=== PATIENT | female | born 1995 | race Caucasian/White ===

== ENCOUNTER 2016-04-01 08:29 | Emergency (ER) | payer BC, OTHER ==
[2016-04-01 08:46] VITALS: BP 151/70; PULSE 70; TEMP 98.9; BMI 40.3
--- NOTE | 2016-04-01 09:15 | PDOC ---
History of Present Illness - General Chief Complaint: Respiratory Stated Complaint: COUGH Time Seen by Provider: 04/01/16 08:40 - History of Present Illness Initial Comments: 04/01/16 10:12 Chief complaint: Persistent cough History of present illness: Patient with cough and febrile illness, status post Z-Shaka, fever has resolved and there is no shortness of breath or chest pain. 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 No asthma. Social/family history: No smoking. No lung disease or heart disease. Physical exam: Alert and oriented well-developed well-nourished distress cheerful and cooperative Afebrile, vital signs normal HEENT: Significant nasal congestion is present with discharge Neck supple without bruit mass or nodes Chest clear bilaterally, full breath sounds throughout, no wheezes rales or rhonchi CV regular without murmur rub or gallop Abdomen benign. Impression: Persistent cough and nasal congestion, signs of sinusitis Plan: Rest and fluids, course of Ceftin, more specific for sinusitis, stronger cough suppressant to use at night, nasal steroids. Follow-up ENT if no improvement. Patient discharged with her family to follow-up as directed, fully ambulatory in no distress. Past History - Past Medical History Allergies/Adverse Reactions: Allergies Allergy/AdvReac Type Severity Reaction Status Date / Time No Known Allergies Allergy Verified 11/13/12 22:32 Home Medications: Ambulatory Orders Budesonide [Rhinocort Allergy] 1 - 2 inh NS DAILY #1 spray.pump 04/01/16 Cefuroxime Axetil [Ceftin -] 500 mg PO Q12H #20 tablet 04/01/16 Guaifenesin AC [Robitussin-AC] 1 - 2 tsp PO HS PRN #90 ml MDD 2 04/01/16 Guaifenesin Dm [Robitussin Dm -] 10 ml PO Q4H 04/01/16 Guaifenesin [Mucinex -] 600 mg PO DAILY 04/01/16 Cardiac Disorders: Yes (INFANTI PULM VALVE STENOSIS) - Surgical History Appendectomy: Yes (VALVULOPLASTY AN ) - Immunization History Td Vaccination: Yes Immunization Up to Date: Yes - Psycho/Social/Smoking Cessation Hx Anxiety: No Suicidal Ideation: No Smoking Status: No Smoking History: Never smoked Have you smoked in the past 12 months: No Number of Cigarettes Smoked Daily: 0 Information on smoking cessation initiated: No Hx Alcohol Use: No Drug/Substance Use Hx: No Substance Use Type: None *Physical Exam - Vital Signs Last Vital Signs Temp Pulse Resp BP Pulse Ox 98.9 F 70 16 151/70 98 04/01/16 08:43 04/01/16 08:43 04/01/16 08:43 04/01/16 08:43 04/01/16 08:43 ED Treatment Course - ADDITIONAL ORDERS Additional order review: Laboratory Results 04/01/16 08:50 Urine HCG, Qual Negative *DC/Admit/Observation/Transfer Diagnosis at time of Disposition: Sinusitis Qualifiers: Sinusitis location: unspecified location Chronicity: acute Recurrence: non- recurrent Qualified Code(s): J01.90 - Acute sinusitis, unspecified - Discharge Dispostion Disposition: HOME Condition at time of disposition: Stable Admit: No - Prescriptions Prescriptions: Cefuroxime Axetil [Ceftin -] 500 mg PO Q12H #20 tablet Budesonide [Rhinocort Allergy] 1 - 2 inh NS DAILY #1 spray.pump Guaifenesin AC [Robitussin-AC] 1 - 2 tsp PO HS PRN #90 ml MDD 2 PRN Reason: Cough - Patient Instructions Printed Discharge Instructions: DI for Sinusitis
== END 2016-04-01 09:17 | disposition home or self-care (01) ==
LOC: FER 08:29
DX: J01.90 Acute sinusitis, unspecified (principal); Z95.2 Presence of prosthetic heart valve
CPT/HCPCS: 84703; 99282-25

== ENCOUNTER 2017-07-18 11:59 | Observation (INO) | payer BC, OTHER ==
[2017-07-18] MEDS ORDERED: morphine CARPU-JECT 4 MG/1 ML DISP.SYRIN IVPUSH ONE (12:05)
[2017-07-18] MEDS ORDERED: SODIUM CHLORIDE 1,000 ML IV STA ×2 (12:05→13:18)
[2017-07-18] MEDS ORDERED: ONDANSETRON 4 MG/2 ML VIAL IVPB ONE (12:05)
--- NOTE | 2017-07-18 12:06 | PDOC ---
History of Present Illness <Damian Justice - Last Filed: 07/18/17 15:32> - General History Source: Patient, Parent(s) Exam Limitations: No Limitations - History of Present Illness Initial Comments: 07/18/17 12:20 21 year old F c/ hx pulmonary stenosis s/p surgery at the age of 6 months (with reportedly unremarkable echocardiograms) p/w RLQ pain since this morning. The patient woke up with constant RLQ pain with no appetite, and some nausea. Denies fevers, vomiting, diarrhea, dysuria. No prior abdominal surgeries. Came in for an evaluation. <Wisam Power - Last Filed: 07/18/17 16:31> - General Chief Complaint: Pain Stated Complaint: ABDOMINAL PAIN Time Seen by Provider: 07/18/17 12:05 Past History <Damian Justice - Last Filed: 07/18/17 15:32> - Past Medical History Cardiac Disorders: Yes (INFANTI PULM VALVE STENOSIS) - Surgical History Appendectomy: Yes (VALVULOPLASTY AN INFANT) - Immunization History Td Vaccination: Yes Immunization Up to Date: Yes - Suicide/Smoking/Psychosocial Hx Smoking Status: No Smoking History: Never smoked Have you smoked in the past 12 months: No Number of Cigarettes Smoked Daily: 0 Hx Alcohol Use: No Drug/Substance Use Hx: No Substance Use Type: None <Wisam Power - Last Filed: 07/18/17 16:31> - Past Medical History Allergies/Adverse Reactions: Allergies Allergy/AdvReac Type Severity Reaction Status Date / Time No Known Allergies Allergy Verified 07/18/17 12:01 Review of Systems - Review of Systems Able to Perform ROS?: Yes Comments:: 07/18/17 12:24 GENERAL/CONSTITUTIONAL: No fever, weakness. HEAD, EYES, EARS, NOSE AND THROAT: No change in vision. No ear pain or discharge. No sore throat. CARDIOVASCULAR: No chest pain or shortness of breath. RESPIRATORY: No cough, wheezing, or hemoptysis. GASTROINTESTINAL: + abdominal pain, nausea, decreased PO intolerance. No vomiting, diarrhea. GENITOURINARY: No dysuria, frequency, or change in urination. MUSCULOSKELETAL: No joint or muscle swelling or pain. No neck or back pain. SKIN: No rash NEUROLOGIC: No headache, vertigo, loss of consciousness, or change in strength/ sensation. ENDOCRINE: No increased thirst. No abnormal weight change. HEMATOLOGIC/LYMPHATIC: No anemia, easy bleeding, or history of blood clots. ALLERGIC/IMMUNOLOGIC: No hives or skin allergy. <Wisam Power - Last Filed: 07/18/17 16:31> *Physical Exam - Vital Signs Last Vital Signs Temp Pulse Resp BP Pulse Ox 98.9 F 61 16 110/59 100 07/18/17 13:17 07/18/17 13:17 07/18/17 13:17 07/18/17 13:17 07/18/17 13:17 <Damian Justice - Last Filed: 07/18/17 15:32> - Physical Exam Comments: 07/18/17 12:24 GENERAL: Awake, alert, and fully oriented, in no acute distress. HEAD: No signs of trauma EYES: PERRLA, EOMI, sclera anicteric, conjunctiva clear ENT: Auricles normal inspection, hearing grossly normal, nares patent NECK: Normal ROM, supple LUNGS: Breath sounds equal, clear to auscultation bilaterally. No wheezes, and no crackles HEART: Regular rate and rhythm, normal S1 and S2, +murmur ABDOMEN: Soft. TTP [place] point RLQ, suprapubic. +psoas sign and obturator sign positive. EXTREMITIES: Normal range of motion, no edema. No clubbing or cyanosis. No cords, erythema, or tenderness NEUROLOGICAL: Cranial nerves II through XII grossly intact. Normal speech, normal gait SKIN: Warm, Dry, normal turgor, no rashes or lesions noted. <Wisam Power - Last Filed: 07/18/17 16:31> ED Treatment Course - LABORATORY CBC & Chemistry Diagram: 07/18/17 12:25 07/18/17 12:25 - ADDITIONAL ORDERS Additional order review: Laboratory Results 07/18/17 12:25 Sodium 132 L Potassium 4.6 Chloride 102 Carbon Dioxide 21 L Anion Gap 9 BUN 9 Creatinine 0.9 Creat Clearance w eGFR > 60 Random Glucose 119 H Calcium 9.0 Total Bilirubin 0.7 AST 20 ALT 17 Alkaline Phosphatase 59 Total Protein 7.3 Albumin 4.1 Lipase 106 07/18/17 12:25 RBC 5.28 H MCV 83.1 MCHC 33.5 RDW 13.7 MPV 9.4 Neutrophils % No Result Required. Lymphocytes % No Result Required. - Medications Given in the ED: ED Medications Discontinued Medications Generic Name Dose Route Start Last Admin Trade Name Maria L PRN Reason Stop Dose Admin Sodium Chloride 1,000 mls @ 1,000 mls/hr 07/18/17 12:05 07/18/17 12:35 Normal Saline - IV 07/18/17 13:04 1,000 mls/hr ASDIR STA Administration Sodium Chloride 1,000 mls @ 1,000 mls/hr 07/18/17 13:18 07/18/17 13:23 Normal Saline - IV 07/18/17 14:17 1,000 mls/hr ASDIR STA Administration Morphine Sulfate 4 mg 07/18/17 12:05 07/18/17 12:40 Morphine Injection - IVPUSH 07/18/17 12:06 4 mg ONCE ONE Administration Ondansetron HCl 4 mg 07/18/17 12:05 07/18/17 12:37 Zofran Injection IVPB 07/18/17 12:06 4 mg ONCE ONE Administration <Damian Justice - Last Filed: 07/18/17 15:32> - LABORATORY CBC & Chemistry Diagram: 07/18/17 12:25 07/18/17 12:25 <Wisam Power - Last Filed: 07/18/17 16:31> Medical Decision Making - Medical Decision Making 07/18/17 15:[address] Ramos at 2:56pm. Case discussed with Dr. Almaguer at 3:27pm <Damian Justice - Last Filed: 07/18/17 15:32> - Medical Decision Making 07/18/17 12:25 Vital Signs Temp Pulse Resp BP Pulse Ox 97.9 F 52 L 20 129/66 100 07/18/17 12:00 07/18/17 12:00 07/18/17 12:00 07/18/17 12:00 07/18/17 12:00 Pt with RLQ pain. Will need to r/o appendicitis. Labs, UA, Urine test, CT abdomen and pelvis. 07/18/17 16:29 CBC, BMP 07/18/17 12:25 07/18/17 12:25 CMP Sodium 132 mmol/L (136-145) L 07/18/17 12:25 Potassium 4.6 mmol/L (3.5-5.1) 07/18/17 12:25 Chloride 102 mmol/L (98-107) 07/18/17 12:25 Carbon Dioxide 21 mmol/L (22-28) L 07/18/17 12:25 Anion Gap 9 (8-16) 07/18/17 12:25 BUN 9 mg/dl (7-18) 07/18/17 12:25 Creatinine 0.9 mg/dl (0.6-1.3) 07/18/17 12:25 Creat Clearance w eGFR > 60 (>60) 07/18/17 12:25 Random Glucose 119 mg/dl (74-106) H 07/18/17 12:25 Calcium 9.0 mg/dl (8.4-10.2) 07/18/17 12:25 Total Bilirubin 0.7 mg/dl (0.2-1.0) 07/18/17 12:25 AST 20 U/L (10-42) 07/18/17 12:25 ALT 17 U/L (10-40) 07/18/17 12:25 Alkaline Phosphatase 59 U/L (32-92) 07/18/17 12:25 Total Protein 7.3 g/dl (6.4-8.3) 07/18/17 12:25 Albumin 4.1 g/dl (3.5-5.0) 07/18/17 12:25 Lipase 106 U/L (73-393) 07/18/17 12:25 The blood work is noted a white count of 15.1. The CAT scan and pelvis demonstrate a partially ruptured ovarian cyst but cannot fully exclude out appendicitis. A pelvic ultrasound was recommended. Pelvic ultrasound was ordered and pending results. However, the patient was reassessed and the patient is pain-free. She is well-appearing. The patient's mother requests that we consult a surgeon Dr. Andrews Ramos. I had spoken to the surgeon who is covering, Dr. Haddad, who recommends that we repeat the white blood cell count and to observe the patient as an observation. Given that this is an equivocal read, the patient agrees to stay in the hospital for observation. The pain may ultimately be a ruptured ovarian cyst but will be cautious and observe the patient. Case discussed with [facility] hospitalist who accepts the patient for med/surg obs Case discussed in detail with admitting physician including history, physical exam and ancillary studies. Admitting physician has assumed care for the patient, will follow all pending diagnostics and will complete the evaluation and treatment. <Wisam Power - Last Filed: 07/18/17 16:31> *DC/Admit/Observation/Transfer <Damian Justice - Last Filed: 07/18/17 15:32> - Discharge Dispostion Admit: Yes <Wisam Power - Last Filed: 07/18/17 16:31> Diagnosis at time of Disposition: Abdominal pain Qualifiers: Abdominal location: unspecified location Qualified Code(s): R10.9 - Unspecified abdominal pain - Discharge Dispostion Condition at time of disposition: Stable
[2017-07-18 12:11] VITALS: BMI 38.7
[2017-07-18] MEDS ORDERED: ONDANSETRON 4 MG/2 ML VIAL ONE (12:31)
[2017-07-18] MEDS ORDERED: morphine SULFATE 4 MG/ML VIAL ONE (12:31)
[2017-07-18 12:35] LABS: HEMOGLOBIN 14.7 GM/dl (10.7-15.3); MEAN PLT VOLUME 9.4 fl (7.5-11.1); WHITE BLOOD COUNT 15.1 K/mm3 (4.0-10.8)
[2017-07-18 12:37] LABS: HEMATOCRIT 43.9 % (32.4-45.2); MCH 27.8 pg (25.7-33.7); MCHC 33.5 g/dl (32.0-36.0); MEAN CELL VOLUME 83.1 fl (80-96); PLATELET COUNT 280 K/MM3 (134-434); RBC 5.28 M/mm3 (3.60-5.2); RDW 13.7 % (11.6-15.6)
[2017-07-18 12:41] LABS: ADD RBC MORPHOLOGY YES
[2017-07-18 13:07] LABS: ALBUMIN 4.1 g/dl (3.5-5.0); ALK PHOS 59 U/L (32-92); ANION GAP 9 (8-16); BILIRUBIN,TOTAL 0.7 mg/dl (0.2-1.0); BLOOD UREA NITROGEN 9 mg/dl (7-18); CHLORIDE 102 mmol/L (98-107); CO2 21 mmol/L (22-28); CREATININE 0.9 mg/dl (0.6-1.3); GLUCOSE,RANDOM 119 mg/dl (74-106); POTASSIUM 4.6 mmol/L (3.5-5.1); SGOT/AST 20 U/L (10-42); SGPT/ALT 17 U/L (10-40); SODIUM 132 mmol/L (136-145); TOT PROT 7.3 g/dl (6.4-8.3)
[2017-07-18 14:00] LABS: LIPASE 106 U/L (73-393)
[2017-07-18] MEDS ORDERED: ONDANSETRON 4 MG/2 ML VIAL IVPUSH PRN (19:57)
[2017-07-18] MEDS ORDERED: DEXTROSE 5%-0.45% SALINE 1,000 ML IV SCH (20:00)
[2017-07-18] MEDS: morphine SULFATE 4 MG/ML VIAL IVPUSH PRN (20:44)
[2017-07-18 21:05] LABS: HCG,QUALITATIVE URINE NEGATIVE; PH,URINE 6.5 (4.5-8); URINE APPEARANCE Clear; URINE BILIRUBIN Negative (NEGATIVE); URINE BLOOD Trace-intact (NEGATIVE); URINE COLOR YELLOW; URINE GLUCOSE (UA) Negative (NEGATIVE); URINE KETONE 2+ (NEGATIVE); URINE LEUK ESTERASE Negative (NEGATIVE); URINE NITRITE Negative (NEGATIVE); URINE PROTEIN Negative (NEGATIVE); URINE UROBILINOGEN 0.2 (0.2-1.0)
[2017-07-18 22:00] LABS: URINE RBC 0-2 /hpf (0-3); URINE WBC 0-1 (0-5)
--- NOTE | 2017-07-18 22:23 | HP ---
CHIEF COMPLAINT: Abdominal Pain PCP: HISTORY OF PRESENT ILLNESS: This is a 21 y/o young woman with a past medical history of pulmonary stenosis, s/p Valvuloplasty age 6mos. Who presents to the ED with right lower quadrant pain and nausea. Patient reports having diffuse sharp/stabbing pain. Patient states" I thought it was gas, but the pain became more intense and did not go away." Patient reports having a normal menstrual cycle and is not sexually active, denies vaginal discharge. Patient denies fever, chills, cough, SOB, CP, palpitations, V/D, constipation, dysuria. ER course was notable for: (1) WBC 15.1 with neutrophilia (2) (3) Recent Travel: PAST MEDICAL HISTORY: PAST SURGICAL HISTORY: Social History: Smoking: Alcohol: Drugs: Family History: Allergies No Known Allergies Allergy (Verified 07/18/17 12:01) HOME MEDICATIONS: REVIEW OF SYSTEMS CONSTITUTIONAL: Absent: fever, chills, diaphoresis, generalized weakness, malaise, loss of appetite, weight change HEENT: Absent: rhinorrhea, nasal congestion, throat pain, throat swelling, difficulty swallowing, mouth swelling, ear pain, eye pain, visual changes CARDIOVASCULAR: Absent: chest pain, syncope, palpitations, irregular heart rate, lightheadedness , peripheral edema RESPIRATORY: Absent: cough, shortness of breath, dyspnea with exertion, orthopnea, wheezing, stridor, hemoptysis GASTROINTESTINAL: Absent: abdominal pain, abdominal distension, nausea, vomiting, diarrhea, constipation, melena, hematochezia GENITOURINARY: Absent: dysuria, frequency, urgency, hesitancy, hematuria, flank pain, genital pain MUSCULOSKELETAL: Absent: myalgia, arthralgia, joint swelling, back pain, neck pain SKIN: Absent: rash, itching, pallor HEMATOLOGIC/IMMUNOLOGIC: Absent: easy bleeding, easy bruising, lymphadenopathy, frequent infections ENDOCRINE: Absent: unexplained weight gain, unexplained weight loss, heat intolerance, cold intolerance NEUROLOGIC: Absent: headache, focal weakness or paresthesias, dizziness, unsteady gait, seizure, mental status changes, bladder or bowel incontinence PSYCHIATRIC: Absent: anxiety, depression, suicidal or homicidal ideation, hallucinations. PHYSICAL EXAMINATION Vital Signs - 24 hr 07/18/17 07/18/17 07/18/17 12:00 13:17 16:48 Temperature 97.9 F 98.9 F 98.9 F Pulse Rate 52 L Pulse Rate [ 61 76 Left Radial] Respiratory 20 16 16 Rate Blood Pressure 129/66 Blood Pressure 110/59 123/79 [Right Arm] O2 Sat by Pulse 100 100 100 Oximetry (%) 07/18/17 07/18/17 07/18/17 17:18 20:01 20:18 Temperature 98.2 F 99.3 F Pulse Rate 60 78 Pulse Rate [ Left Radial] Respiratory 17 16 Rate Blood Pressure 115/57 132/62 Blood Pressure [Right Arm] O2 Sat by Pulse 99 Oximetry (%) 07/18/17 22:20 Temperature 99.4 F Pulse Rate 76 Pulse Rate [ Left Radial] Respiratory 19 Rate Blood Pressure 124/61 Blood Pressure [Right Arm] O2 Sat by Pulse 96 Oximetry (%) GENERAL: Awake, alert, and fully oriented, in no acute distress. HEAD: Normal with no signs of trauma. EYES: Pupils equal, round and reactive to light, extraocular movements intact, sclera anicteric, conjunctiva clear. No lid lag. EARS, NOSE, THROAT: Ears normal, nares patent, oropharynx clear without exudates. Moist mucous membranes. NECK: Normal range of motion, supple without lymphadenopathy, JVD, or masses. LUNGS: Breath sounds equal, clear to auscultation bilaterally. No wheezes, and no crackles. No accessory muscle use. HEART: Regular rate and rhythm, normal S1 and S2 without murmur, rub or gallop. ABDOMEN: Soft, nontender, not distended, normoactive bowel sounds, no guarding, no rebound, no masses. No hepatomegaly or splenomegaly. MUSCULOSKELETAL: Normal range of motion at all joints. No bony deformities or tenderness. No CVA tenderness. UPPER EXTREMITIES: 2+ pulses, warm, well-perfused. No cyanosis. No clubbing. No peripheral edema. LOWER EXTREMITIES: 2+ pulses, warm, well-perfused. No calf tenderness. No peripheral edema. NEUROLOGICAL: Cranial nerves II-XII intact. Normal speech. Normal gait. PSYCHIATRIC: Cooperative. Good eye contact. Appropriate mood and affect. SKIN: Warm, dry, normal turgor, no rashes or lesions noted, normal capillary refill. Laboratory Results - last 24 hr 07/18/17 07/18/17 07/18/17 12:25 12:25 20:50 WBC 15.1 H RBC 5.28 H Hgb 14.7 Hct 43.9 MCV 83.1 MCH 27.8 MCHC 33.5 RDW 13.7 Plt Count 280 MPV 9.4 Neutrophils % No Result Required. Neutrophils % (Manual) 89.0 H Lymphocytes % No Result Required. Lymphocytes % (Manual) 7.0 L Monocytes % (Manual) 4 Platelet Comment Adequate Sodium 132 L Potassium 4.6 Chloride 102 Carbon Dioxide 21 L Anion Gap 9 BUN 9 Creatinine 0.9 Creat Clearance w eGFR > 60 Random Glucose 119 H Calcium 9.0 Total Bilirubin 0.7 AST 20 ALT 17 Alkaline Phosphatase 59 Total Protein 7.3 Albumin 4.1 Lipase 106 Urine Color Yellow Urine Appearance Clear Urine pH 6.5 Ur Specific [place] 1.010 Urine Protein Negative Urine Glucose (UA) Negative Urine Ketones 2+ H Urine Blood Trace-intact H Urine Nitrite Negative Urine Bilirubin Negative Urine Urobilinogen 0.2 Ur Leukocyte Esterase Negative Urine RBC 0-2 Urine WBC 0-1 Urine HCG, Qual Negative ASSESSMENT/PLAN: Problem List - Problem (1) Abdominal pain Assessment/Plan: - Likely secondary to ?ruptured ovarian cyst vs AP - CTAP- reviewed - US- reviewed Code(s): R10.9 - UNSPECIFIED ABDOMINAL PAIN Qualifiers: Abdominal location: unspecified location Qualified Code(s): R10.9 - Unspecified abdominal pain (2) Bilateral ovarian cysts Assessment/Plan: - CTAP- Code(s): N83.201 - UNSPECIFIED OVARIAN CYST, RIGHT SIDE; N83.202 - UNSPECIFIED OVARIAN CYST, LEFT SIDE (3) Leukocytosis (leucocytosis) Assessment/Plan: - Likely secondary to Infection vs Inflammatory - Blood Cultures-pending - Will hold off on ABX secondary to unknown source, will watch and wait - Monitor vitals - Repeat CBC in am Code(s): D72.829 - ELEVATED WHITE BLOOD CELL COUNT, UNSPECIFIED (4) History of pulmonary valve stenosis Assessment/Plan: - s/p Valvuloplasty at 6mos old Code(s): Z86.79 - PERSONAL HISTORY OF OTHER DISEASES OF THE CIRCULATORY SYSTEM (5) DVT prophylaxis Assessment/Plan: - OOB - SCDs Code(s): [id number] - Visit type - Emergency Visit Emergency Visit: Yes ED Registration Date: 07/18/17 Care time: The patient presented to the Emergency Department on the above date and was hospitalized for further evaluation of their emergent condition. - New Patient This patient is new to me today: Yes Date on this admission: 07/19/17 - Critical Care Critical Care patient: No Hospitalist Screening - Colonoscopy Questionnaire Colonoscopy Questionnaire: Colonoscopy Questionnaire - Patient: 50 - 75 years old and never had a screening colonoscopy: No History of colon or rectal polyps, or CA: No History of IBD, Crohn's disease or UC: No History of abdominal radiation therapy as a child: No - Relative: 1 with colon or rectal CA, or polyps at age 60 or younger: No Colon or rectal CA diagnosed at age 45 or younger: No Multiple relatives with colon or rectal CA: No - Outcome: Screening Result: Negative Screen
[2017-07-18] MEDS ORDERED: ACETAMINOPHEN 1000 MG/100 ML VIAL (NON FORMULARY) IVPB PRN (22:49)
[2017-07-19] MEDS: morphine SULFATE 4 MG/ML VIAL IVPUSH PRN (02:31)
[2017-07-19 06:28] VITALS: BP 114/64; PULSE 91; TEMP 99.1
[2017-07-19 08:41] LABS: EOS % 0.5 % (0-4.5); HEMATOCRIT 39.9 % (32.4-45.2); HEMOGLOBIN 13.4 GM/dl (10.7-15.3); LYMPH % 11.4 % (8-40); MCH 28.1 pg (25.7-33.7); MCHC 33.5 g/dl (32.0-36.0); MEAN CELL VOLUME 83.9 fl (80-96); MEAN PLT VOLUME 9.8 fl (7.5-11.1); MONO % 0.3 % (3.8-10.2); NEUT % 86.8 % (42.8-82.8); PLATELET COUNT 229 K/MM3 (134-434); RBC 4.76 M/mm3 (3.60-5.2); RDW 13.8 % (11.6-15.6); WHITE BLOOD COUNT 11.7 K/mm3 (4.0-10.8)
[2017-07-19 08:47] LABS: ANION GAP 7 (8-16); BLOOD UREA NITROGEN 6 mg/dl (7-18); CALCIUM 8.4 mg/dl (8.4-10.2); CHLORIDE 107 mmol/L (98-107); CO2 22 mmol/L (22-28); CREATININE 0.8 mg/dl (0.6-1.3); GLUCOSE,RANDOM 93 mg/dl (74-106); SODIUM 136 mmol/L (136-145)
--- NOTE | 2017-07-19 11:19 | CONS ---
DATE OF CONSULTATION: 07/19/2017 REQUESTING PHYSICIAN: Wisam Power MD RESPONDING PHYSICIAN: Surinder Haddad MD REASON FOR CONSULTATION: Abdominal pain, rule out appendicitis. HISTORY: This is a 21-year-old woman who apparently woke from sleep yesterday morning with right lower quadrant pain. It progressed on during the day and she was ultimately seen and evaluated in the emergency room in the latter part of yesterday. At the time of that evaluation, she had a white count of 15.1 with a normal hemoglobin and hematocrit. She had rather well-localized right lower quadrant pain. The possibility of appendicitis was entertained and a CT scan of the abdomen and pelvis with contrast was ordered and completed. That CT scan demonstrated findings that were suggestive of a ruptured ovarian cyst with a small to moderate amount of free fluid noted within the right hemipelvis. There was also a 5.8 x 5 cm fluid collection versus a mass seen, essentially at the midline of the pelvis. The appendix was not visualized. There were no inflammatory changes in and around the terminal ileum and cecum. Nonetheless, concerning the appendix was not visualized, the possibility of appendicitis, as per the CT tomographer, could not be entirely excluded. Patient underwent a subsequent transvaginal ultrasound evaluation yesterday as well. The uterus was normal. The right ovary measured 1.4 cm in size and was with hypoechoic density, which suggested a complex cyst versus hemorrhagic cyst. The left ovary also demonstrated a small simple cyst, measuring 1.9 cm in its greatest diameter. There was a more complex cystic lesion noted versus adjacent cystic lesions abutting the left ovary and extending medially into the cul-de-sac, measuring 6.6 cm in size. This was thought to likely represent ovarian/paraovarian cyst, hemorrhagic cyst. The possibility of an ovarian mass could not be entirely excluded. At this juncture, the patient is in the hallway walking. She feels much better and has minimal discomfort. She is hungry. She denies fever or chills. Repeat white count this morning 11.7 as compared to yesterday, 15.1; hemoglobin and hematocrit are normal. Per the patient, she has never this issue in the past. LMP June 23, 2017. No past medical history. No history of hypertension, diabetes, hepatic insufficiency. PAST SURGICAL HISTORY: Nil. ALLERGIES: None known. REGULAR MEDICATIONS: None. SOCIAL HISTORY: Negative tobacco, negative alcohol. FAMILY HISTORY: None. PHYSICAL EXAMINATION: General: Awake and alert, ambulating in hallway. Vital Signs: Stable, afebrile. Abdomen: Soft and nontender with no evidence of peritoneal signs or guarding. IMPRESSION: Clinical picture consistent with ruptured ovarian cyst. Appendicitis would be very unlikely. SUGGEST: Considering the patient is markedly improved this morning after observation, I would consider a clear liquid diet at this juncture. I see no contraindication to discharge home. The patient's mother is a nurse and is aware of the remote possibility of a missed appendicitis. The patient will be following with her chief supply chain officer this week as well. If the patient becomes symptomatic again or if she develops fever, they will return to the emergency room to be reevaluated. Remain available and thank you. SURINDER HADDAD M.D. [id number] CC: iWsam Power MD MTDD
--- NOTE | 2017-07-19 13:03 | DS ---
Physical Exam: SUBJECTIVE: Patient seen and examined, Pt reports abdominal pain improved, intermittent spastic pain, vomited x1 this morning, no further nausea or vomiting, clears tolerated well. Remains afebrile with leukocytosis trending down. OBJECTIVE: Vital Signs Period Temp Pulse Resp BP Sys/Yousif Pulse Ox Last 24 Hr 98.2 F-99.4 F 60-91 16-20 110-132/57-79 96-100 PHYSICAL EXAM GENERAL: The patient is awake, alert, and fully oriented, in no acute distress. HEAD: Normal with no signs of trauma. EYES: PERRL, extraocular movements intact, sclera anicteric, conjunctiva clear. ENT: Ears normal, nares patent, oropharynx clear without exudates, moist mucous membranes. NECK: Trachea midline, full range of motion, supple. LUNGS: Breath sounds equal, clear to auscultation bilaterally, no wheezes, no crackles, no accessory muscle use. HEART: Regular rate and rhythm, S1, S2, systolic murmur, rub or gallop. ABDOMEN: Soft, mild surapubic and Rt side tenderness, no rebounbd tenderness or pulsatile mass nondistended, normoactive bowel sounds, no guarding, no rebound, no hepatosplenomegaly, no masses. EXTREMITIES: 2+ pulses, warm, well-perfused, no edema. NEUROLOGICAL: Cranial nerves II through XII grossly intact. Normal speech, gait not observed. PSYCH: Normal mood, normal affect. SKIN: Warm, dry, normal turgor, no rashes or lesions noted. LABS Laboratory Results - last 24 hr 07/18/17 07/18/17 07/18/17 12:25 12:25 20:50 WBC RBC Hgb Hct MCV MCH MCHC RDW Plt Count MPV Neutrophils % Neutrophils % (Manual) 89.0 H Lymphocytes % Lymphocytes % (Manual) 7.0 L Monocytes % Monocytes % (Manual) 4 Eosinophils % Basophils % Platelet Comment Adequate Sodium 132 L Potassium 4.6 Chloride 102 Carbon Dioxide 21 L Anion Gap 9 BUN 9 Creatinine 0.9 Creat Clearance w eGFR > 60 Random Glucose 119 H Calcium 9.0 Total Bilirubin 0.7 AST 20 ALT 17 Alkaline Phosphatase 59 Total Protein 7.3 Albumin 4.1 Lipase 106 Urine Color Yellow Urine Appearance Clear Urine pH 6.5 Ur Specific [place] 1.010 Urine Protein Negative Urine Glucose (UA) Negative Urine Ketones 2+ H Urine Blood Trace-intact H Urine Nitrite Negative Urine Bilirubin Negative Urine Urobilinogen 0.2 Ur Leukocyte Esterase Negative Urine RBC 0-2 Urine WBC 0-1 Urine HCG, Qual Negative 07/19/17 07/19/17 06:00 06:00 WBC 11.7 H RBC 4.76 Hgb 13.4 Hct 39.9 MCV 83.9 MCH 28.1 MCHC 33.5 RDW 13.8 Plt Count 229 MPV 9.8 Neutrophils % 86.8 H Neutrophils % (Manual) Lymphocytes % 11.4 Lymphocytes % (Manual) Monocytes % 0.3 L Monocytes % (Manual) Eosinophils % 0.5 Basophils % 1.0 Platelet Comment Sodium 136 Potassium 4.0 Chloride 107 Carbon Dioxide 22 Anion Gap 7 L BUN 6 L D Creatinine 0.8 Creat Clearance w eGFR Random Glucose 93 D Calcium 8.4 Total Bilirubin AST ALT Alkaline Phosphatase Total Protein Albumin Lipase Urine Color Urine Appearance Urine pH Ur Specific [place] Urine Protein Urine Glucose (UA) Urine Ketones Urine Blood Urine Nitrite Urine Bilirubin Urine Urobilinogen Ur Leukocyte Esterase Urine RBC Urine WBC Urine HCG, Qual HOSPITAL COURSE: Date of Admission:07/18/17 Date of Discharge: 07/19/17 This is a 21 year old female with 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 The patient reports woke up with constant RLQ pain with no appetite, and some nausea. Denies fevers, vomiting, diarrhea, dysuria. No prior abdominal surgeries. In ER found to have a white count of 15.1, afebrile. The CAT scan and pelvis demonstrate a partially ruptured ovarian cyst but cannot fully exclude out appendicitis. A pelvic ultrasound was done which suggestive of a complex cyst vs hemorrhagic cyst, complex large cystic mass / ovarian mass lesion such as a cystadenoma could not excluded recommended. Pelvic ultrasound was ordered and pending results. Patient received IV hydration and pain medications with improvement. Pt was evaluated by surgery , suggests abdominal pain likely due to ruptured cyst, unlikely appendicitis, rec to start on clears once Po tolerate well pt can be discharged home. Pt tolerated clears, reports feeling better, wants to go home, WBC trending down, UA negative, no respiratory symptoms. Recommend out pt [facility] [employer] consult. Minutes to complete discharge: 35 Discharge Summary Reason For Visit: ABDOMINAL PAIN Condition: Stable - Instructions Diet, Activity, Other Instructions: Diet as tolerated. For any worsening pain, fever,advised to call [facility] [employer] or go the ER. Referrals: Indira Velasquez MD [Staff Physician] - ( in few days ) Disposition: HOME - Home Medications Comprehensive Discharge Medication List: Ambulatory Orders Acetaminophen [Tylenol] 650 mg PO Q4HWA 14 Days tablet 07/19/17 Ondansetron HCl [Zofran] 4 mg PO TID PRN #10 tablet 07/19/17 This patient is new to me today: Yes Date on this admission: 07/19/17 Emergency Visit: Yes ED Registration Date: 07/18/17 Care time: The patient presented to the Emergency Department on the above date and was hospitalized for further evaluation of their emergent condition. Critical Care patient: No - Discharge Referral Referred to [facility] No
== END 2017-07-19 11:30 | disposition home or self-care (01) ==
LOC: FER 11:59 → FM/S 16:26
PROVIDERS: ADMIT Hospitalist; ATTEND Nurse Practitioner Family
PROC: 3E033NZ Introduction of Analgesics, Hypnotics, Sedatives into Peripheral Vein, Percutaneous Approach (ICD-10-PCS; principal; 2017-07-18)
PROC: 3E033GC Introduction of Other Therapeutic Substance into Peripheral Vein, Percutaneous Approach (ICD-10-PCS; 2017-07-18)
PROC: 3E0337Z Introduction of Electrolytic and Water Balance Substance into Peripheral Vein, Percutaneous Approach (ICD-10-PCS; 2017-07-18)
DX: R10.31 Right lower quadrant pain (principal); N83.291 Other ovarian cyst, right side; N83.292 Other ovarian cyst, left side; D72.829 Elevated white blood cell count, unspecified; Z87.74 Personal history of (corrected) congenital malformations of heart and circulatory system
CPT/HCPCS: 36415; 74177-TC; 76830-TC; 80048; 80053; 81003; 81015; 83690; 84703; 85025; 87086; 99285-25; G0378; J7030